=== PATIENT | male | born 1985 ===

== ENCOUNTER 2021-05-07 07:34 | Observation (INO) ==
[2021-05-07] MEDS ORDERED: Isovue-370 500 ML BOTTLE IVP ONE (07:56)
[2021-05-07] MEDS ORDERED: 0.9 % Sodium Chloride 1,000 ML IVC ONE (07:57)
[2021-05-07] MEDS ORDERED: Metoclopramide 10 MG/2 ML VIAL IVP ONE ×2 (07:57→11:49)
[2021-05-07] MEDS ORDERED: Tetracaine 0.5% OPTH 80 DROP/4 ML BOTTLE LEFT EYE ONE (09:29)
[2021-05-07] MEDS ORDERED: SUMAtriptan 6 MG/0.5 ML SQ ONE (09:30)
[2021-05-07] MEDS ORDERED: Fluorescein Sodium STRIP OP ONE (09:59)
[2021-05-07 10:09] LABS: Basophils % 0.4 %; Eosinophils # 0.2 K/mcL (0.0-0.6); Eosinophils % 1.8 %; Hematocrit 45.3 % (37.5-50.1); Hemoglobin 15.1 g/dL (12.9-16.9); Immature Granulocytes % 0.4 % (0-4); Lymphocytes # 1.6 K/mcL (0.6-4.6); Lymphocytes % 17.3 %; Mean Corpuscular HGB Conc 33.3 g/dL (31.6-35.5); Mean Corpuscular Hemoglobin 31.1 pg (28.0-33.3); Mean Corpuscular Volume 93.2 fL (83.0-100.0); Mean Platelet Volume 8.8 fL (9.4-12.4); Monocytes # 0.3 K/mcL (0.0-1.3); Monocytes % 3.8 %; Neutrophils # 6.8 K/mcL (1.6-8.9); Platelet Count 289 K/mcL (140-400); Red Blood Count 4.86 M/mcL (4.19-5.50); Red Cell Distribution Width 13.5 % (11.5-14.5); Segmented Neutrophils % 76.3 %
[2021-05-07 10:29] LABS: BUN/Creatinine Ratio 9 (6-26); Blood Urea Nitrogen 8 mg/dL (6-20); C-Reactive Protein < 5 mg/L (Less than 10); Calcium 8.9 mg/dL (8.6-10.3); Carbon Dioxide 29 mEq/L (23-29); Chloride 104 mEq/L (98-107); Glucose 104 mg/dL (70-105); Osmolality,Calculated 287 (280-300); Potassium 4.3 mEq/L (3.5-5.1); Sodium 139 mEq/L (136-145); eGFR For African Americans > 60 (> 60); eGFR For Non-African Americans > 60 (> 60)
[2021-05-07] MEDS ORDERED: Ketorolac 15 MG/ML VIAL IVP ONE (11:48)
[2021-05-07] MEDS ORDERED: SUMAtriptan 6 MG/0.5 ML SQ STA (14:11)
[2021-05-07] MEDS ORDERED: Gentamicin OPTH Soln 5 ML BOTTLE LEFT EYE STA (14:32)
[2021-05-07] MEDS ORDERED: Naloxone 0.4 MG/ML INJ IVP PRN (15:05)
[2021-05-07] MEDS ORDERED: Gadolinium Contrast Agent (WT Based) IV PRN (15:32)
[2021-05-07] MEDS ORDERED: Prochlorperazine 10 MG/2 ML VIAL IVP PRN ×2 (16:31→18:15)
[2021-05-07] MEDS ORDERED: GADOBUTROL 30 MMOL/30 ML VIAL IVP ONE (16:39)
[2021-05-07] MEDS: Nicotine 14 MG PATCH.TD24 TD SCH (18:12)
[2021-05-07] MEDS: *HR* OxyCODONE/APAP 5/325 TABLET PO PRN ×2 (18:14→22:54)
[2021-05-07] MEDS ORDERED: Morphine Sulfate 2 MG/ML SYRINGE IVP ONE (20:25)
[2021-05-07] MEDS ORDERED: Vancomycin 1,750 MG in 0.9 % Sodium Chloride 250 ML IVPB SCH (21:00)
[2021-05-07] MEDS: Vancomycin 1,750 MG/517.5 ML IV.SOLN IVPB SCH (21:45)
[2021-05-07] MEDS: cefTRIAXone 1,000 MG in Water for inj. (sterile) 10 ML IVP SCH (21:45)
[2021-05-08] MEDS ORDERED: Morphine Sulfate 2 MG/ML SYRINGE IVP ONE (01:35)
[2021-05-08 02:34] LABS: Albumin 4.3 g/dL (3.5-5.7); BUN/Creatinine Ratio 12 (6-26); Blood Urea Nitrogen 11 mg/dL (6-20); Calcium 9.4 mg/dL (8.6-10.3); Carbon Dioxide 25 mEq/L (23-29); Chloride 102 mEq/L (98-107); Glucose 177 mg/dL (70-105); Osmolality,Calculated 288 (280-300); Phosphorous 2.3 mg/dL (2.7-4.5); Potassium 3.8 mEq/L (3.5-5.1); Sodium 137 mEq/L (136-145); eGFR For African Americans > 60 (> 60); eGFR For Non-African Americans > 60 (> 60)
[2021-05-08] MEDS: *HR* OxyCODONE/APAP 5/325 TABLET PO PRN ×3 (03:47→12:02)
[2021-05-08] MEDS: cefTRIAXone 1,000 MG in Water for inj. (sterile) 10 ML IVP SCH (07:51)
[2021-05-08] MEDS: Nicotine 14 MG PATCH.TD24 TD SCH (07:53)
[2021-05-08] MEDS ORDERED: Indomethacin 25 MG CAPSULE PO ONE (09:23)
[2021-05-08] MEDS: Vancomycin 1,750 MG/517.5 ML IV.SOLN IVPB SCH ×2 (10:33→22:04)
[2021-05-08] MEDS: Pantoprazole 40 MG VIAL IVP SCH (10:37)
[2021-05-08] MEDS ORDERED: *HR* OxyCODONE Immed Rel 5 MG TABLET PO PRN (13:27)
[2021-05-08] MEDS ORDERED: SUMAtriptan 6 MG/0.5 ML SQ ONE (13:32)
[2021-05-08] MEDS: *HR* OxyCODONE Immed Rel 5 MG TABLET PO PRN ×3 (14:08→22:02)
[2021-05-08] MEDS ORDERED: Indomethacin 25 MG CAPSULE PO SCH (17:00)
[2021-05-08] MEDS: Erythromycin OPTH Oint LEFT EYE SCH (22:03)
[2021-05-09] MEDS: *HR* OxyCODONE Immed Rel 5 MG TABLET PO PRN ×2 (02:20→07:39)
[2021-05-09 07:17] VITALS: TEMP 97.6
[2021-05-09] MEDS: Pantoprazole 40 MG VIAL IVP SCH (07:38)
[2021-05-09] MEDS: Erythromycin OPTH Oint LEFT EYE SCH (07:39)
[2021-05-09] MEDS: Nicotine 14 MG PATCH.TD24 TD SCH (07:40)
[2021-05-09 10:50] VITALS: BP 117/76; PULSE 83; O2SAT 93
== END 2021-05-09 11:30 | disposition home or self-care (01) ==
LOC: EMEROOARM 07:34 → 3BNU 07:34 → SUATTDRO 15:44 → 3BNU 16:17
PROVIDERS: ADMIT Internal Medicine; ATTEND Internal Medicine